=== PATIENT | male | born 1950 | race Caucasian/White ===

== ENCOUNTER 2017-05-27 07:53 | Day surgery (SDC) | payer OTHER ==
[~2017-05-27 07:53] MED LIST: Buffered Lidocaine 0.9% SYRIN* 5 ML/SYR SYRINGE INTRADERM ONE; DiMENhydriNATE IV* 50 MG/ML VIAL IV PUSH PRN; Famotidine IV* 10 MG/ML 2 ML (20 mg) IV ONE; Famotidine IV* 10 MG/ML 2 ML (20 mg) ONE; Morphine INJ* 2 MG/ML 1 ML CARPUJECT IV PRN; Naloxone* 0.4 MG/ML 1 ML VIAL IV PRN; PROCHLORPERAZINE INJ 5 MG/ML 2 ML VIAL IV PRN; Scopolamine 1.5 mg* PATCH TRANSDERM PRN; ceFAZolin 2 GM PREMIX (*) 2 GM/50 ML BAG IVPB ONE; fentaNYL* 50 MCG/ML 2 ML VIAL (100 MCG VIAL) IV PRN; oxyCODONE/Acetamin 5/325 MG* TAB PO PRN
[2017-05-27] MEDS ORDERED: fentaNYL* 50 MCG/ML 2 ML VIAL (100 MCG VIAL) ONE (08:59)
[2017-05-27] MEDS ORDERED: KETAMINE HCL* 50 MG/ML 10 ML VIAL ONE (09:00)
[2017-05-27] MEDS ORDERED: Midazolam* 1 MG/ML 10 ML VIAL (10 MG) ONE (09:00)
[2017-05-27] MEDS ORDERED: EPINEPHRINE 1 MG/ML 1 ML VIAL ONE (09:30)
[2017-05-27] MEDS ORDERED: Bupivacaine 0.5% SDV PF* 10-30ML VIAL ONE (09:31)
[2017-05-27] MEDS ORDERED: Morphine INJ* 10 MG/ML 1 ML CARPUJECT ONE (10:14)
[2017-05-27] MEDS ORDERED: Dexamethasone IV* 4 MG/ML 1 ML (4 MG) ONE (10:26)
[2017-05-27] MEDS ORDERED: Phenylephrine IV* 40 MCG/ML 10 ML SYRINGE ONE (10:26)
[2017-05-27] MEDS ORDERED: Ondansetron INJ* 2 MG/ML VIAL ONE (10:26)
[2017-05-27] MEDS ORDERED: Lidocaine 2% PF * 5 ML VIAL ONE (10:26)
[2017-05-27] MEDS ORDERED: Ketorolac INJ* 30 MG/ML 1 ML VIAL ONE (10:26)
[2017-05-27] MEDS ORDERED: Propofol* 10 MG/ML 20 ML BTL IV PUSH ONE (10:26)
[2017-05-27 12:44] VITALS: BP 130/86
--- NOTE | 2017-05-28 09:15 | OP ---
OPERATIVE REPORT: DATE OF OPERATION: 05/27/17 DATE OF : 48 SURGEON: Ramón Orona MD. JACKER: MARTY Zheng A physician trading assistant was required for the length of the procedure for positioning and assistance wit h instrumentation. ANESTHESIOLOGIST: Dr. Tin Frost. ANESTHESIA: General anesthesia, local anesthesia, 20 mL, 0.25% Marcaine without epinephrine. PRE-OP DIAGNOSIS: Right knee medial meniscus tear. POST-OP DIAGNOSIS: Right knee medial meniscus tear. OPERATIVE PROCEDURE: Right knee arthroscopic partial medial meniscectomy. ANTIBIOTICS: Ancef 2 g IV. IV FLUIDS: 1000 cc crystalloid. TOURNIQUET TIME: 23 minutes at 300 mmHg. SPECIMEN: None. IMPLANTS: None. COMPLICATIONS: None. EBL: Minimal. INDICATIONS FOR PROCEDURE: The patient is a 67-year-old man, with a long history now of pain about t he right knee, that responded insufficiently to nonoperative management. MRI demonstrated a complex tear of the posterior horn and posterior body of the medial meniscus. Imaging had shown only trace s purring about the patellofemoral joint and possible mild medial compartment joint space narrowing by x-ray. See full history and history and physical note. The patient opted for surgery. Discussed risks and potential complications of surgery including blee ding, infection, nerve or blood vessel injury, blood clot, knee pain, stiffness, osteoarthritis. DESCRIPTION OF PROCEDURE: The patient signed written consent in preoperative holding. The operative extremity was marked in preoperative holding. The patient was taken back to the operating room and placed supine on operating room table. The patient was sedated and intubated. Hair was shaved from t he anterior aspect of the right knee. Tourniquet was placed about the proximal thigh, right. The di stal thigh was placed in the circumferential thigh mcgill. Table was elevated and foot of the table was dropped. The right lower extremity was prepped with ChloraPrep from foot to thigh. A draping was performed. A surgical time-out was performed. Esmarch was applied and tourniquet was elevated to 300 mmHg. Anterolateral knee arthroscopy portal was established using standard technique. Diagnostic arthroscop y started in the patellofemoral compartment where there was some prolapsed fat obscuring visualizatio n of patellofemoral compartment. I moved to the medial compartment. The only sign of cartilage inju ry was about the central most aspect of the medial femoral condyle. There was some slight erosion of some articular cartilage of the medial femoral condyle. There was a clear medial meniscus tear about the posterior horn and posterior body junction. I established an anteromedial knee arthroscopy portal under direct visualization using standard techn ique. I entered an arthroscopic probe and probed the meniscus tear. The first component of the tear that was evident was a radial shaped tear. This was probed and there appeared to be a flap component to the more anterior piece of the meniscus loose at that radial tear. There clearly was some also o blique or longitudinal tearing of the medial meniscus in that location. I debrided the medial meniscus back to a stable rim using arthroscopic shaver and meniscus biter, wor pauly from the anteromedial and then the anterolateral portals. I probed the finished product and ther e was no unstable meniscus nor any displaced flap of meniscus remaining. At the point of tear, there was certainly thinness of the remaining meniscus. I was hopeful that there appeared to be some meni scus still visible at that location, but it was closer to the capsule. I then continued diagnostic arthroscopy to the anterior aspect of the knee. Debrided ligamentum mucos um and some anterior synovitis. ACL and PCL intact. I proceeded with the lateral compartment. No a rticular cartilage or meniscus injury. I proceeded to the patellofemoral compartment. No injury to the articular cartilage. No spurs appre ciated. I debrided some synovitis with arthroscopic shaver. Instruments and fluid removed from the knee. Cpinjy-ss-kymrx and 12 and simple stitches used to clos e skin incisions with nylon 4-0 suture. Local anesthetic injected about the skin incisions, 20 mL. Xeroform, 4x4s, sterile Webril, [place] bandage from foot to proximal thigh. Tourniquet was dropped. Co oling unit applied. The patient was extubated and sent to PACU. DISPOSITION: The patient will receive Percocet as needed and aspirin postoperatively. clinical therapist apy to start immediately. Weightbearing as tolerated. Wound care instructions provided. Followup w camila riley in 10 to 14 days postoperatively. [id number]/[facility] #: [id number]
[2017-05-30] MEDS ORDERED: Scopolamine PATCH Remove* 1 NOTE MISC PATCH OFF ONE (06:56)
== END 2017-05-27 12:44 | disposition home or self-care (01) ==
LOC: OR 07:53
PROVIDERS: ATTEND Orthopaedic Surgery
DX: M23.203 Derangement of unspecified medial meniscus due to old tear or injury, right knee (principal); M25.561 Pain in right knee; G61.82 Multifocal motor neuropathy; N40.0 Benign prostatic hyperplasia without lower urinary tract symptoms; G47.30 Sleep apnea, unspecified
CPT/HCPCS: J0690; J1100; J1885; J2250; J2270; J2405; J2704; J3010